=== PATIENT | female | born 1960 | race Caucasian/White ===

== ENCOUNTER 2023-02-02 12:33 | Emergency (ER) | payer OTHER ==
[2023-02-02] MEDS ORDERED: DIAZEPAM 10 MG/2 ML INJ SYRINGE ONE (13:01)
--- NOTE | 2023-02-02 13:34 | RAD REPORT ---
EXAM DESCRIPTION: RAD - Tib Fib Right - 02/02/2023 1:25 pm CLINICAL HISTORY: Smash injury;Swelling COMPARISON: No comparisons FINDINGS: Mildly displaced fracture proximal tibia. Fracture appears to have a component laterally w hich extends into the joint space. Impacted fracture proximal fibular neck also present.
--- NOTE | 2023-02-02 14:00 | RAD REPORT ---
EXAM DESCRIPTION: CT - Knee Right Wo Cont - 02/02/2023 1:49 pm CLINICAL HISTORY: Tibial plateau fx Fall, pain COMPARISON: No comparisons FINDINGS: Impacted and moderately displaced comminuted intra-articular proximal tibial fracture. Imp acted and moderately comminuted fracture of the proximal fibular head and neck as well. Large lipohemarthrosis. IMPRESSION: Significantly comminuted proximal tibial and fibular fractures as detailed. Tibial fract ure components are 8 mm displaced with intra-articular extension. All CT scans are performed using dose optimization technique as appropriate and may include automated exposure control or mA/KV adjustment according to patient size.
[2023-02-02] MEDS ORDERED: NA CHLORIDE 0.9% 1,000 ML ONE (15:39)
[2023-02-02] MEDS ORDERED: FENTANYL CITR 100 MCG/2 ML ONE (15:39)
--- NOTE | 2023-02-02 17:46 | ER ---
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 It looks like a Tib-fib fracture. Otherwise no LOC. She has a history of COPD, Crohns, thyroid problems. She was given 100 mcg of fentanyl and a 22 g left wrist. She is currently at a /10. Last BP was 147/82, HR 70's. Coronavirus screen: Vaccine status: Patient reports receiving the 2nd dose of the covid vaccine. [employer]. Ebola Screen: Patient negative for fever greater than or equal to 101.5 degrees Fahrenheit, and additional compatible Ebola Virus Disease symptoms Patient denies exposure to infectious person. Patient denies travel to an Ebola-affected area in the 21 days before illness onset. Initial Sepsis Screen: Does the patient meet any 2 criteria? No. Patient's initial sepsis screen is negative. Does the patient have a suspected source of infection? No. Patient's initial sepsis screen is negative. Risk Assessment: Do you want to hurt yourself or someone else? Patient reports no desire to harm self or others. Onset of symptoms was February 02, 2023 at 11:40. 12:36 Method Of Arrival: EMS: [facility] tw5 12:36 Acuity: JOSE L 3 tw5 Triage Assessment: 12:46 General: Appears uncomfortable, Behavior is calm, cooperative, appropriate for age. tw5 Pain: Complains of pain in right watters Pain currently is 5 out of 10 on a pain scale. Musculoskeletal: Reports pain in right watters. Injury Description: Deformity sustained to right leg. Historical: - Allergies: 12:43 Remicade; tw5 - Home Meds: 12:43 levothyroxine oral [Active]; Singulair Oral [Active]; tw5 12:46 gabapentin oral [Active]; tw5 - PMHx: 12:46 Chronic obstructive lung disease; Crohn's disease; Hypothyroidism; tw5 - PSHx: 12:46 left shoulder rotator cuff surgery; Ligation of fallopian tube; carpal tunnel surgery; tw5 Cholecystectomy; - Immunization history:: Flu vaccine is up to date. - Social history:: Smoking status: Patient/guardian denies using tobacco, Stopped _ months ago 6. Screenin:49 [facility] ED Fall Risk Assessment (Adult) History of falling in the last 3 months, tw5 including since admission Yes- single mechanical fall (1 pt). Abuse screen: Denies threats or abuse. Denies injuries from another. Nutritional screening: No deficits noted. Tuberculosis screening: No symptoms or risk factors identified. Assessment: 12:49 Pain: Pain currently is 5 out of 10 on a pain scale. Neuro: Level of Consciousness is tw5 awake, alert, obeys commands. Cardiovascular: Capillary refill < 3 seconds is brisk in bilateral toes Pulses are 2+ in right dorsalis pedis artery. Musculoskeletal: Bony deformity noted of right watters Swelling present in right watters. 15:58 General: Appears in no apparent distress. Behavior is calm, cooperative, appropriate tw5 for age. Pain: Pain currently is 8 out of 10 on a pain scale. 16:29 Reassessment: Patient states symptoms have improved. General: Reports "I am freezing." tw5 Patient given two more warmed blankets. 16:51 General: Patient repositioned for comfort with the help of family at the bedside'. tw5 Neuro: Level of Consciousness is awake, alert, obeys commands, Oriented to person, place, time, situation. Respiratory: Airway is patent Trachea midline Respiratory effort is even, unlabored. Derm: Skin is intact. 17:48 General: Behavior is crying. Pain: Pain currently is 10 out of 10 on a pain scale. tw5 Vital Signs: 12:36 BP 111 / 98; Pulse 74; Resp 18; Temp 98.4; Pulse Ox 100% on R/A; Weight 60.78 kg; tw5 Height 5 ft. 2 in. ; Pain 5/10; 15:58 BP 117 / 71; Pulse 86; Resp 18; Pulse Ox 100% on 1.5 lpm NC; tw5 16:29 BP 127 / 72; Pulse 78; Resp 12; Pulse Ox 100% on 1.5 lpm NC; tw5 12:36 Body Mass Index 24.51 (60.78 kg, 157.48 cm) tw5 12:36 Pain Scale: Adult tw5 ED Course: 12:36 Patient arrived in ED. tw5 12:36 Jud[facility] Del[facility]C [facility]. snw 12:36 Feng May MD is Attending Physician. snw 12:43 Triage completed. tw5 12:46 Arm band placed on right wrist. Patient placed in an exam room. tw5 12:49 Awaiting for x-ray. tw5 12:49 Patient has correct armband on for positive identification. Bed in low position. Call tw5 light in reach. Side rails up X 1. Pulse ox on. NIBP on. Door closed. Noise minimized. Lights dimmed. 12:49 Maintain EMS IV. Dressing intact. Good blood return noted. Site clean \\T\\ dry. Gauge \\T\\ tw 5 site: 22 left wrist. 12:54 Reshma Quintero is Primary Nurse. tw5 13:26 Tib Fib Right XRAY In Process Unspecified. EDMS 13:51 Knee Right Wo Cont In Process Unspecified. EDMS 15:58 Oxygen administration via nasal cannula. Orthoglass splint: Posterior long leg splint tw5 applied on right leg. By [employer]. 16:00 attempted to initiate transfer center at [facility], was placed on hold and em1 call was dropped after 30 minutes with no answer. Will call back. 17:48 SARS RAPID Sent. tw5 17:52 Patient transferred, IV remains in place. tw5 17:52 No provider procedures requiring assistance completed. tw5 Administered Medications: 13:02 Drug: Diazepam IVP 5 mg Route: IVP; Site: left wrist; tw5 15:57 Follow up: Response: No adverse reaction tw5 15:57 Drug: fentaNYL (PF) IVP 25 mcg Route: IVP; Site: left wrist; tw5 15:59 Follow up: Response: No adverse reaction; Pain is decreased tw5 15:57 Drug: NS 0.9% IV 1000 ml Route: IV; Rate: 125 ml/hr; Site: left wrist; tw5 18:46 Follow up: IV Status: Infusion continued upon transfer tw5 17:45 Drug: HYDROmorphone IVP 1 mg Route: IVP; Site: left wrist; tw5 18:46 Follow up: Response: No adverse reaction tw5 18:46 Drug: HYDROmorphone IVP 1 mg Route: IVP; Site: left wrist; tw5 18:46 Follow up: Response: No adverse reaction tw5 Medication: 15:58 VIS not applicable for this client. tw5 Outcome: 17:45 ER care complete, transfer ordered by MD. victoria 17:52 Transferred to [facility]. tw5 17:52 Transferred Note: Report given to Chen in the ER 17:52 Condition: good 17:52 Discharge instructions given to patient, family, Instructed on the need for transfer. 18:46 Patient left the ED. tw Signatures: Dispatcher [employer] EDMS Judi Delgado, [employer]-Jeancarlos Phillips, Ramakrishna [email or web address] Reshma Quintero tw5 Corrections: (The following items were deleted from the chart) 12:49 12:46 PMHx: Complex congenital heart defect; tw tw 12:50 12:49 [facility] ED Fall Risk Assessment (Adult) History of falling in the last 3 months, tw5 including since admission tw5
--- NOTE | 2023-02-02 17:46 | EDPHYS ---
Physician Documentation [facility] Name: Brenda Avery Age: 62 yrs Sex: Female : 1960 Arrival Date: 02/02/2023 Time: 12:36 Bed 26 Private MD: ED Physician Feng May HPI: 02/02 12:40 This 62 yrs old Female presents to ER via Unassigned with complaints of Leg Injury. snw 12:40 The patient presents with an injury, pain, that is acute. The complaints affect the snw right watters. Context: The problem was sustained at work, resulted from the patient falling, from bucket, the patient is not able to bear weight, the patient is not able to ambulate, splinted per EMS. Onset: The symptoms/episode began/occurred suddenly, just prior to arrival. Associated signs and symptoms: The patient has no apparent associated signs or symptoms. Severity of symptoms: At their worst the symptoms were moderate. The patient has not experienced similar symptoms in the past. It is unknown whether or not the patient has recently seen a physician. Pt [place] [employer] and fell from bucket, no LOC, no head injury. Right lower leg pain. EMS started IV and administered 100mcg Fentanyl, splinted lower ext. + pulses, sock removed on arrival to ED. Pt a\T\ox3. Historical: - Allergies: 12:43 Remicade; tw5 - Home Meds: 12:43 levothyroxine oral [Active]; Singulair Oral [Active]; tw5 12:46 gabapentin oral [Active]; tw5 - PMHx: 12:46 Chronic obstructive lung disease; Crohn's disease; Hypothyroidism; tw5 - PSHx: 12:46 left shoulder rotator cuff surgery; Ligation of fallopian tube; carpal tunnel surgery; tw Cholecystectomy; - Immunization history:: Flu vaccine is up to date. - Social history:: Smoking status: Patient/guardian denies using tobacco, Stopped _ months ago 6. ROS: 12:39 Constitutional: Negative for fever, chills, and weight loss, Eyes: Negative for injury, snw pain, redness, and discharge, ENT: Negative for injury, pain, and discharge, Neck: Negative for injury, pain, and swelling, Cardiovascular: Negative for chest pain, palpitations, and edema, Respiratory: Negative for shortness of breath, cough, wheezing, and pleuritic chest pain, Abdomen/GI: Negative for abdominal pain, nausea, vomiting, diarrhea, and constipation, Back: Negative for injury and pain, : Negative for injury, bleeding, discharge, and swelling, Skin: Negative for injury, rash, and discoloration, Neuro: Negative for headache, weakness, numbness, tingling, and seizure, Psych: Negative for depression, anxiety, suicide ideation, homicidal ideation, and hallucinations. 12:39 MS/extremity: Positive for injury or acute deformity, decreased range of motion, pain, swelling, tenderness, of the right leg. Exam: 12:37 Constitutional: This is a well developed, well nourished patient who is awake, alert, snw and in no acute distress. Head/Face: Normocephalic, atraumatic. Eyes: Pupils equal round and reactive to light, extra-ocular motions intact. Lids and lashes normal. Conjunctiva and sclera are non-icteric and not injected. Cornea within normal limits. Periorbital areas with no swelling, redness, or edema. ENT: Nares patent. No nasal discharge, no septal abnormalities noted. Tympanic membranes are normal and external auditory canals are clear. Oropharynx with no redness, swelling, or masses, exudates, or evidence of obstruction, uvula midline. Mucous membranes moist. Neck: Trachea midline, no thyromegaly or masses palpated, and no cervical lymphadenopathy. Supple, full range of motion without nuchal rigidity, or vertebral point tenderness. No Meningismus. Chest/axilla: Normal chest wall appearance and motion. Nontender with no deformity. No lesions are appreciated. Cardiovascular: Regular rate and rhythm with a normal S1 and S2. No gallops, murmurs, or rubs. Normal PMI, no JVD. No pulse deficits. Respiratory: Lungs have equal breath sounds bilaterally, clear to auscultation and percussion. No rales, rhonchi or wheezes noted. No increased work of breathing, no retractions or nasal flaring. Abdomen/GI: Soft, non-tender, with normal bowel sounds. No distension or tympany. No guarding or rebound. No evidence of tenderness throughout. Back: No spinal tenderness. No costovertebral tenderness. Full range of motion. Skin: Warm, dry with normal turgor. Normal color with no rashes, no lesions, and no evidence of cellulitis. Neuro: Awake and alert, GCS 15, oriented to person, place, time, and situation. Cranial nerves II-XII grossly intact. Motor strength 5/5 in all extremities. Sensory grossly intact. Cerebellar exam normal. Normal gait. Psych: Awake, alert, with orientation to person, place and time. Behavior, mood, and affect are within normal limits. 12:37 Musculoskeletal/extremity: Extremities: grossly normal except: noted in the right watters: contusion, ecchymosis, swelling, tenderness, Circulation is intact in all extremities. Sensation intact. Vital Signs: 12:36 BP 111 / 98; Pulse 74; Resp 18; Temp 98.4; Pulse Ox 100% on R/A; Weight 60.78 kg; tw5 Height 5 ft. 2 in. ; Pain 5/10; 15:58 BP 117 / 71; Pulse 86; Resp 18; Pulse Ox 100% on 1.5 lpm NC; tw5 16:29 BP 127 / 72; Pulse 78; Resp 12; Pulse Ox 100% on 1.5 lpm NC; tw5 12:36 Body Mass Index 24.51 (60.78 kg, 157.48 cm) tw5 12:36 Pain Scale: Adult tw5 MDM: 12:39 Patient medically screened. snw 12:39 Differential diagnosis: dislocation, open fracture, closed fracture, tendonitis. Data snw reviewed: vital signs, nurses notes, EMS record, radiologic studies, plain films. I considered the following discharge prescriptions or medication management in the emergency department Medications were administered in the Emergency Department. See JAN. 13:20 Independent interpretation of the following test(s) in the Emergency Department X-Ray: snw My interpretation is Impacted fx of tibia/fibula, suspect tibial plateau fracture. 15:00 Management of patient was discussed with the following: Dr Rodriguez, description of snw fracture. Fracture is type 5 and needs transfer to higher level of care.. 15:37 Counseling: I had a detailed discussion with the patient and/or guardian regarding: the snw historical points, exam findings, and any diagnostic results supporting the discharge/admit diagnosis, the presence of at least one elevated blood pressure reading (>120/80) during this emergency department visit, radiology results, the need for outpatient follow up, for definitive care, the need to transfer to another facility, for higher level of care, [facility] does not immediately have the required specialist. 02/02 17:22 Order name: SARS RAPID; Complete Time: 18:29 snw 02/02 12:37 Order name: Tib Fib Right XRAY; Complete Time: 13:35 snw 02/02 13:31 Order name: Knee Right Wo Cont; Complete Time: 14:03 EDMS 02/02 12:37 Order name: NPO; Complete Time: 12:51 snw 02/02 12:37 Order name: Ice pack; Complete Time: 12:54 snw 02/02 13:29 Order name: Long Leg Splint: Posterior w/ Stirrup; Complete Time: 15:57 snw Administered Medications: 13:02 Drug: Diazepam IVP 5 mg Route: IVP; Site: left wrist; tw5 15:57 Follow up: Response: No adverse reaction tw5 15:57 Drug: fentaNYL (PF) IVP 25 mcg Route: IVP; Site: left wrist; tw5 15:59 Follow up: Response: No adverse reaction; Pain is decreased tw5 15:57 Drug: NS 0.9% IV 1000 ml Route: IV; Rate: 125 ml/hr; Site: left wrist; tw5 18:46 Follow up: IV Status: Infusion continued upon transfer tw5 17:45 Drug: HYDROmorphone IVP 1 mg Route: IVP; Site: left wrist; tw5 18:46 Follow up: Response: No adverse reaction tw5 18:46 Drug: HYDROmorphone IVP 1 mg Route: IVP; Site: left wrist; tw5 18:46 Follow up: Response: No adverse reaction tw5 Disposition Summary: 02/02/23 17:45 Transfer Ordered Transfer Location: [facility] snw Reason: Higher level of care snw Condition: Stable snw Problem: new snw Symptoms: have improved snw Accepting Physician: Dr. Morejon(02/02/23 18:46) tw5 Diagnosis - Comminuted tibial/fibular fracture with extension into tibial plateau snw Forms: - Medication Reconciliation Form snw - SBAR form snw Signatures: Dispatcher [employer] Judi Patterson FNP-C [facility]hma [facility] tw5 Corrections: (The following items were deleted from the chart) 12:49 12:46 PMHx: Complex congenital heart defect; tw5 tw5 18:46 17:45 Dr. Jean-Pierre victoria tw
[2023-02-02] MEDS ORDERED: HYDROMORPHONE HCL 0.5 MG/0.5 ML INJ ONE ×2 (17:47→18:46)
[2023-02-02 18:27] LABS: SARS-CoV-2 Antigen Rapid Res Negative (Negative)
[2023-02-02 19:34] VITALS: TEMP 98.4; O2SAT 100
[2023-02-02 19:37] VITALS: BP 127/72
== END 2023-02-02 18:46 | disposition short-term general hospital (02) ==
LOC: ER 12:33
PROC: 2W3QX1Z Immobilization of Right Lower Leg using Splint (ICD-10-PCS; principal; 2023-02-02)
DX: S82.141A Displaced bicondylar fracture of right tibia, initial encounter for closed fracture (principal); E03.9 Hypothyroidism, unspecified; J44.9 Chronic obstructive pulmonary disease, unspecified; Z20.822 Contact with and (suspected) exposure to COVID-19; Z88.8 Allergy status to other drugs, medicaments and biological substances
CPT/HCPCS: 36415; 73700; 73590; 87811; 29505; J3360; J3010; J1170 ×2; J7030; 96361; 96374; 96375; 99285